=== PATIENT | male | born 1985 | race Caucasian/White ===

== ENCOUNTER → 2019-04-30 10:10 | Outpatient (CLI) | payer OTHER, SELFPAY ==
[2019-04-30 10:52] LABS: Influenza A - CEPHEID Flu A NEGATIVE (NEGATIVE); Influenza B - CEPHEID Flu B POSITIVE (NEGATIVE)
== END ==
PROVIDERS: Family Provider Family Medicine; PCP Family Medicine; Visit Provider Physician Assistant
DX: R68.89 Other general symptoms and signs (principal)
CPT/HCPCS: 87502